=== PATIENT | male | born 1995 | race Caucasian/White ===

== ENCOUNTER 2017-10-11 10:50 | Day surgery (SDC) | payer OTHER ==
[2017-10-09 13:26] VITALS: BMI 22.7
[2017-10-11] MEDS ORDERED: LIDOCAINE HCL 2% (20ML MULTI-DOSE VIAL) NR ONE (10:54)
[2017-10-11] MEDS ORDERED: DEXAMETHASONE SOD PHOSPHATE/PF 10 MG/ML SDV ONE (11:45)
[2017-10-11] MEDS ORDERED: MIDAZOLAM HCL 2 MG/2 ML SINGLE DOSE VIAL ONE (11:46)
[2017-10-11] MEDS ORDERED: BUPIVACAINE HCL/PF (5 MG/ML) 30 ML VIAL IJ ONE (11:46)
[2017-10-11] MEDS ORDERED: PROPOFOL 20 ML ONE ×3 (12:39)
[2017-10-11] MEDS ORDERED: LIDOCAINE HCL 2% JELLY (5 ML/TUBE) ONE (12:40)
[2017-10-11] MEDS ORDERED: DEXAMETHASONE SOD PHOSPHATE 4 MG/1 ML VIAL ONE (12:40)
[2017-10-11] MEDS ORDERED: ceFAZolin SODIUM 1 GM VIAL ONE (12:40)
[2017-10-11] MEDS ORDERED: ONDANSETRON 4 MG/2 ML VIAL ONE (12:40)
[2017-10-11] MEDS ORDERED: GUM MASTIC/STORAX/MSAL/ALCOHOL 1 DRP DROPSBTL MC ONE (13:41)
[2017-10-11] MEDS ORDERED: oxyCODONE HCL 5 MG TABLET PO PRN ×2 (13:57)
[2017-10-11] MEDS ORDERED: PROMETHAZINE HCL 25 MG/1 ML VIAL IVPUSH PRN (13:57)
[2017-10-11] MEDS ORDERED: ONDANSETRON 4 MG/2 ML VIAL IVPUSH PRN (13:57)
[2017-10-11 15:16] VITALS: TEMP 98
[2017-10-11 15:34] VITALS: BP 116/74; PULSE 78
--- NOTE | 2017-10-12 16:06 | OP ---
DATE OF OPERATION: 10/11/2017 PREOPERATIVE DIAGNOSIS: Right displaced intraarticular distal radius fracture. POSTOPERATIVE DIAGNOSIS: Right displaced intraarticular distal radius fracture. OPERATIVE PROCEDURE: 1. Open reduction and internal fixation of right distal radius fracture with internal fixation of 3 or more fragments. 2. Right brachioradialis tenotomy. SURGEON: Vanessa Orourke MD PROFILING MACHINE SETUP OPERATOR: FRANKLIN Villanueva ANESTHESIA: Regional. COMPLICATIONS: None. ESTIMATED BLOOD LOSS: Minimal. INDICATION FOR PROCEDURE: The patient is a 22-year-old male with the above finding indicated for operative treatment. Risks, benefits, and alternatives were discussed with the patient at length. Proper informed consent was obtained. DESCRIPTION OF PROCEDURE: After proper identification of the patient and the correct operative site, the patient was brought to the operating room and placed supine on the table. All prominences were well padded. Regional anesthesia was given. Intravenous antibiotic given. Timeout procedure was performed. Right upper extremity was prepped and draped in the usual sterile fashion. A well-padded tourniquet was placed as well as a sterile prep. Esmarch bandage to exsanguinate the right upper extremity. Tourniquet was inflated to 250 mmHg. A longitudinal incision was made over the volar aspect of the wrist in line with the FCR tendon. Incision was taken sharply through the skin, with blunt and sharp dissection through the subcutaneous tissues. Flexor carpi radialis tendon along with the contents of the carpal canal was bluntly and gently retracted in an ulnarward direction for the remainder of the procedure. The pronator quadratus was divided longitudinally. Fracture was identified and found to be intraarticular and was held in proximal direction due to the pull of the brachioradialis. Brachioradialis tenotomy was performed in subperiosteal fashion to release the distal fragment. Once this was accomplished, the fragment was able to be reduced and held with an Acumed AccuLock distal radius plate with distal non-locking screws and proximal locking pegs. This provided secure stable fixation, confirmed radiographically in multiple planes. There was no evidence of instability of the distal radioulnar joints or scapholunate interval with stress examination. Wound was irrigated with saline, repaired in layers including pronator quadratus with 4-0 Vicryl and 4-0 Monocryl suture. Steri-Strips and sterile dressings were applied. Patient was reversed from anesthesia and brought to Recovery in stable condition. He tolerated the procedure well. Jonathan Jang, the assistant county engineer, was integral throughout this procedure. Procedure could not have been performed without a skilled operative assistant county engineer. VANESSA OROURKE M.D. [id number]
== END 2017-10-11 15:55 | disposition home or self-care (01) ==
LOC: FASU 10:50
PROVIDERS: ATTEND Orthopaedic Surgery Hand Surgery
PROC: 0LN50ZZ Release Right Lower Arm and Wrist Tendon, Open Approach (ICD-10-PCS; 2017-10-11)
PROC: 0PSH04Z Reposition Right Radius with Internal Fixation Device, Open Approach (ICD-10-PCS; principal; 2017-10-11 12:30)
DX: S52.532A Colles' fracture of left radius, initial encounter for closed fracture (principal); X58.XXXA Exposure to other specified factors, initial encounter; Y93.9 Activity, unspecified; Y92.9 Unspecified place or not applicable
CPT/HCPCS: 73110-TC-RT-FY; 94760